=== PATIENT | male | born 1990 | race Caucasian/White ===

== ENCOUNTER 2021-01-20 21:09 | Emergency (ER) | payer SELFPAY ==
[~2021-01-20] VITALS: Ht 182.9 cm; Wt 63.5 kg
[2021-01-20 21:09] VITALS: BP 118/66
[2021-01-20] MEDS: CEPHALEXIN MONOHYDRATE 500 MG CAPSULE PO ONE (22:00)
[2021-01-20] MEDS: IBUPROFEN 600 MG TABLET PO ONE (22:00)
[2021-01-20] MEDS: SULFAMETH/TRIMETH 800/160 MG 1 UDTAB TABLET PO ONE (22:00)
[2021-01-20] MEDS ORDERED: SULFAMETH/TRIMETH 800/160 MG 1 UDTAB TABLET ONE (22:05)
[2021-01-20] MEDS ORDERED: IBUPROFEN 600 MG TABLET ONE (22:05)
[2021-01-20] MEDS ORDERED: CEPHALEXIN MONOHYDRATE 500 MG CAPSULE PO ONE (22:05)
[2021-01-20] MEDS ORDERED: CEPH500T PO (22:16)
[2021-01-20] MEDS ORDERED: SULF1TAB48 PO (22:16)
[2021-01-20] MEDS ORDERED: IBUP-1957 PO (22:16)
== END 2021-01-20 22:34 | disposition home or self-care (01) ==
LOC: ER 21:11
DX: L02.413 Cutaneous abscess of right upper limb (principal); F19.10 Other psychoactive substance abuse, uncomplicated; Z59.0 Homelessness; Z79.899 Other long term (current) drug therapy

== ENCOUNTER 2021-02-12 09:57 | Emergency (ER) | payer SELFPAY ==
[~2021-02-12] VITALS: Ht 182.9 cm; Wt 61.2 kg
[~2021-02-12 09:57] MED LIST: CEPH500T PO; IBUP-1957 PO; SULF1TAB48 PO
--- NOTE | 2021-02-12 10:02 | NUR ---
BIBRA [address] C/O OD UNKNOWN NARCOTIC. NARCAN 4MG AND ZOFRAN 4MG IV GIVEN COPYHOLDER. BG 135. BIBRA [address] C/O OD UNKNOWN NARCOTIC. NARCAN 4MG AND ZOFRAN 4MG IV GIVEN COPYHOLDER. BG 135. PT AAOX4, RR EVEN & UNLABORED. DENIES CP, SOB, DIZZINESS AT THIS TIME. PLACED ON STRING TOP SEALER, ST. PLACED ON O2 2L 98%. AWAITING EVAL BY WADE. WILL CONT TO MONITOR.
--- NOTE | 2021-02-12 10:08 | NUR ---
CASH OFFICERS AT BS.
--- NOTE | 2021-02-12 10:32 | NUR ---
GIVEN WATER & WIN WELL.
--- NOTE | 2021-02-12 11:43 | NUR ---
PT WANTED TO LEAVE ED. VSS. RR EVEN & UNLABORED. GIVEN WATER & GATORADE WITH MEAL. Patient discharged to home in stable condition. Written and verbal after care instructions given. Patient verbalizes understanding of instruction. IV removed. Catheter intact and site benign. Pressure and 4x4 applied to site. No bleeding noted.
[2021-02-12 11:46] VITALS: BP 112/78
== END 2021-02-12 11:46 | disposition home or self-care (01) ==
LOC: ER 09:58
DX: F19.10 Other psychoactive substance abuse, uncomplicated (principal); Z59.0 Homelessness